=== PATIENT | male | born 1970 | race American Indian/Alaskan Native ===

== ENCOUNTER 2019-12-21 06:56 | Emergency (ER) | payer MEDICARE ==
[2019-12-21 07:56] LABS: Basophils % (Auto) 0.5 % (0.0-1.8); Eosinophils % (Auto) 0.5 % (0.0-4.3); Hematocrit 42.3 % (35.5-45.6); Hemoglobin 14.2 gm/dl (11.8-15.2); Lymphocytes # (Auto) 2.3 K/mm3 (1.2-5.4); Lymphocytes % (Auto) 29.4 % (13.4-35.0); Mean Corpuscular HGB Conc 34 % (32-34); Mean Corpuscular Volume 81 fl (84-94); Monocytes # (Auto) 0.5 K/mm3 (0.0-0.8); Platelet Count 268 K/mm3 (140-440); Red Blood Count 5.22 M/mm3 (3.65-5.03); Red Cell Distribution Width 13.5 % (13.2-15.2)
[2019-12-21 08:23] LABS: Alanine Aminotransferase 11 units/L (7-56); Albumin 4.6 g/dL (3.9-5); BUN/Creatinine Ratio 24; Blood Urea Nitrogen 24 mg/dL (9-20); Calcium 9.8 mg/dL (8.4-10.2); Hemolysis Index 14
--- NOTE | 2019-12-21 08:56 | Emergency Department Report ---
ED Abdominal Pain HPI - General Chief Complaint: Abdominal Pain Stated Complaint: SEVERE ABD PAIN Time Seen by Provider: 12/21/19 08:29 Source: patient Mode of arrival: Ambulatory Limitations: No Limitations - History of Present Illness Initial Comments: 48-year-old -[place] male patient presents with complaints of epigastric pain x 5 days. Patient reports history of PUD 3 years ago and states he is currently taking Protonix. He rates his current pain as a 7/10 in severity and states it worsens with eating and lying down. He denies any fe truong/chills/sweats, chest pain, shortness of breath, hematemesis/coffee-ground emesis, melena/hematochezia, constipation, or history of abdominal surgeries. He also admits to history of diabetes, hypertension, and high alcohol intake. Patient states he has not been able to keep any foods down since the onset of his symptoms and states he has to spit often. He denies difficulty swallowing or choking. - Related Data Previous Rx's Medication Instructions Recorded Last Taken Type Acetaminophen/Codeine [Tylenol 1 tab PO Q6H PRN #6 tab 12/21/19 Unknown Rx /Codeine # 3 tab] Dexlansoprazole [Dexilant] 60 mg PO QAM 15 Days #15 bp 12/21/19 Unknown Rx Mag Hydrox/Aluminum Hyd/Simeth 20 ml PO Q4H PRN 10 Days #1 12/21/19 Unknown Rx [Maalox Advanced Suspension] oral.susp Sucralfate [Carafate] 1 gm PO Q6HR 10 Days #100 tablet 12/21/19 Unknown Rx Allergies Allergy/AdvReac Type Severity Reaction Status Date / Time No Known Allergies Allergy Unverified 12/21/19 07:13 ED Review of Systems ROS: Stated complaint: SEVERE ABD PAIN Other details as noted in HPI Constitutional: denies: chills, fever Eyes: denies: vision change ENT: denies: throat pain Respiratory: denies: cough, shortness of breath Cardiovascular: denies: chest pain Gastrointestinal: abdominal pain, nausea, vomiting. denies: diarrhea, constipation, hematemesis, melena, hematochezia Genitourinary: denies: urgency, dysuria, frequency, hematuria Musculoskeletal: denies: back pain Skin: denies: rash, lesions, change in color Neurological: denies: headache Hematological/Lymphatic: denies: easy bleeding, easy bruising ED Past Medical Hx - Past Medical History Previous Medical History?: Yes Hx Hypertension: Yes Hx Diabetes: Yes Additional medical history: stomach ulcer - Surgical History Past Surgical History?: No - Social History Smoking Status: Current Every Day Smoker Substance Use Type: Alcohol - Medications Home Medications: Home Medications Medication Instructions Recorded Confirmed Last Taken Type Acetaminophen/Codeine [Tylenol 1 tab PO Q6H PRN #6 tab 12/21/19 Unknown Rx /Codeine # 3 tab] Dexlansoprazole [Dexilant] 60 mg PO QAM 15 Days #15 beto.bp 12/21/19 Unknown Rx Mag Hydrox/Aluminum Hyd/Simeth 20 ml PO Q4H PRN 10 Days #1 12/21/19 Unknown Rx [Maalox Advanced Suspension] oral.susp Sucralfate [Carafate] 1 gm PO Q6HR 10 Days #100 tablet 12/21/19 Unknown Rx ED Physical Exam - General Limitations: No Limitations General appearance: alert, in no apparent distress - Head Head exam: Present: atraumatic, normocephalic - Eye Eye exam: Present: normal appearance. Absent: scleral icterus - ENT ENT exam: Present: mucous membranes moist - Neck Neck exam: Present: normal inspection - Respiratory Respiratory exam: Present: normal lung sounds bilaterally. Absent: respiratory distress - Cardiovascular Cardiovascular Exam: Present: regular rate, normal rhythm. Absent: systolic murmur, diastolic murmur, rubs, gallop - GI/Abdominal GI/Abdominal exam: Present: soft, tenderness (Epigastric tenderness noted to palpation with mild guarding), normal bowel sounds. Absent: distended, rebound, rigid - Extremities Exam Extremities exam: Present: normal inspection - Back Exam Back exam: Present: normal inspection - Neurological Exam Neurological exam: Present: alert, oriented X3, normal gait - Psychiatric Psychiatric exam: Present: normal affect, normal mood - Skin Skin exam: Present: warm, dry, intact, normal color. Absent: rash ED Course Vital Signs 12/21/19 12/21/19 12/21/19 07:13 08:46 13:17 Temperature 98.4 F Pulse Rate 87 68 Respiratory 16 18 16 Rate Blood Pressure 132/91 Blood Pressure 148/78 [Right] O2 Sat by Pulse 100 98 99 Oximetry ED Medical Decision Making - Lab Data Result diagrams: 12/21/19 07:48 12/21/19 07:48 Lab Results 12/21/19 12/21/19 12/21/19 Range/Units 07:35 07:48 07:48 WBC 7.8 (4.5-11.0) K/mm3 RBC 5.22 H (3.65-5.03) M/mm3 Hgb 14.2 (11.8-15.2) gm/dl Hct 42.3 (35.5-45.6) % MCV 81 L (84-94) fl MCH 27 L (28-32) pg MCHC 34 (32-34) % RDW 13.5 (13.2-15.2) % Plt Count 268 (140-440) K/mm3 Lymph % (Auto) 29.4 (13.4-35.0) % Norton % (Auto) 7.0 (0.0-7.3) % Eos % (Auto) 0.5 (0.0-4.3) % Baso % (Auto) 0.5 (0.0-1.8) % Lymph # 2.3 (1.2-5.4) K/mm3 Norton # 0.5 (0.0-0.8) K/mm3 Eos # 0.0 (0.0-0.4) K/mm3 Baso # 0.0 (0.0-0.1) K/mm3 Seg Neutrophils % 62.6 (40.0-70.0) % Seg Neutrophils # 4.9 (1.8-7.7) K/mm3 Sodium 135 L (137-145) mmol/L Potassium 3.4 L (3.6-5.0) mmol/L Chloride 94.4 L (98-107) mmol/L Carbon Dioxide 27 (22-30) mmol/L Anion Gap 17 mmol/L BUN 24 H (9-20) mg/dL Creatinine 1.0 (0.8-1.3) mg/dL Estimated GFR > 60 ml/min BUN/Creatinine Ratio 24 % Glucose 195 H (75-100) mg/dL POC Glucose 190 H (70-105) Calcium 9.8 (8.4-10.2) mg/dL Total Bilirubin 0.70 (0.1-1.2) mg/dL AST 11 (5-40) units/L ALT 11 (7-56) units/L Alkaline Phosphatase 73 (35-129) units/L Troponin T (0.00-0.029) ng/mL Total Protein 7.4 (6.3-8.2) g/dL Albumin 4.6 (3.9-5) g/dL Albumin/Globulin Ratio 1.6 % Lipase (13-60) units/L Urine Color (Yellow) Urine Turbidity (Clear) Urine pH (5.0-7.0) Ur Specific Bristow (1.003-1.030) Urine Protein (Negative) mg/dL Urine Glucose (UA) (Negative) mg/dL Urine Ketones (Negative) mg/dL Urine Blood (Negative) Urine Nitrite (Negative) Urine Bilirubin (Negative) Urine Urobilinogen (<2.0) mg/dL Ur Leukocyte Esterase (Negative) Urine WBC (Auto) (0.0-6.0) /HPF Urine RBC (Auto) (0.0-6.0) /HPF U Epithel Cells (Auto) (0-13.0) /HPF Urine Mucus /HPF 12/21/19 12/21/19 12/21/19 Range/Units 07:48 08:45 09:40 WBC (4.5-11.0) K/mm3 RBC (3.65-5.03) M/mm3 Hgb (11.8-15.2) gm/dl Hct (35.5-45.6) % MCV (84-94) fl MCH (28-32) pg MCHC (32-34) % RDW (13.2-15.2) % Plt Count (140-440) K/mm3 Lymph % (Auto) (13.4-35.0) % Norton % (Auto) (0.0-7.3) % Eos % (Auto) (0.0-4.3) % Baso % (Auto) (0.0-1.8) % Lymph # (1.2-5.4) K/mm3 Norton # (0.0-0.8) K/mm3 Eos # (0.0-0.4) K/mm3 Baso # (0.0-0.1) K/mm3 Seg Neutrophils % (40.0-70.0) % Seg Neutrophils # (1.8-7.7) K/mm3 Sodium (137-145) mmol/L Potassium (3.6-5.0) mmol/L Chloride (98-107) mmol/L Carbon Dioxide (22-30) mmol/L Anion Gap mmol/L BUN (9-20) mg/dL Creatinine (0.8-1.3) mg/dL Estimated GFR ml/min BUN/Creatinine Ratio % Glucose (75-100) mg/dL POC Glucose (70-105) Calcium (8.4-10.2) mg/dL Total Bilirubin (0.1-1.2) mg/dL AST (5-40) units/L ALT (7-56) units/L Alkaline Phosphatase (35-129) units/L Troponin T < 0.010 (0.00-0.029) ng/mL Total Protein (6.3-8.2) g/dL Albumin (3.9-5) g/dL Albumin/Globulin Ratio % Lipase 12 L (13-60) units/L Urine Color Luz (Yellow) Urine Turbidity Clear (Clear) Urine pH 6.0 (5.0-7.0) Ur Specific Bristow 1.025 (1.003-1.030) Urine Protein 30 mg/dl (Negative) mg/dL Urine Glucose (UA) 150 (Negative) mg/dL Urine Ketones Tr (Negative) mg/dL Urine Blood Neg (Negative) Urine Nitrite Neg (Negative) Urine Bilirubin Neg (Negative) Urine Urobilinogen < 2.0 (<2.0) mg/dL Ur Leukocyte Esterase Neg (Negative) Urine WBC (Auto) 15.0 H (0.0-6.0) /HPF Urine RBC (Auto) 3.0 (0.0-6.0) /HPF U Epithel Cells (Auto) < 1.0 (0-13.0) /HPF Urine Mucus 3+ /HPF - Radiology Data Radiology results: report reviewed CT abdomen pelvis w con INDICATION: epigastric pain. TECHNIQUE: All CT scans at this location are performed using CT dose reduction for ALARA by means of automated exposure control. COMPARISON: None available. FINDINGS: Lung bases are clear. Liver, gallbladder, spleen, pancreas, kidneys and adrenals are negative. Incidental benign-appearing left renal cyst. Abdominal aorta is normal in size. No adenopathy. Pelvis Normal appendix. No free fluid, inflammatory change, abnormal mass or adenopathy. No skeletal lesions. IMPRESSION: 1. No significant abnormality. - Medical Decision Making Patient here with complaints of epigastric pain. No significant abnormalities are noted on CBC, CMP, or lipase, however given patient's history of PUD his physical exam, CT abdomen was ordered which was negative for any acute findings. Patient was treated with a GI cocktail and Protonix IV and states his pain has significantly improved. Patient is tolerating fluids p.o. His vitals remain normal, he is well-appearing, and stable for discharge home. Recommend follow- up with gastroenterology for further evaluation. Patient instructed to di scontinue Protonix for now and start Dexilant and Carafate. Strict return precautions were discussed in great detail with patient who verbalized understanding. - Differential Diagnosis PUD, gastritis, H. pylori Critical care attestation.: If time is entered above; I have spent that time in minutes in the direct care of this critically ill patient, excluding procedure time. ED Disposition Clinical Impression: Gastritis Qualifiers: Gastritis type: other gastritis Chronicity: acute Gastritis bleeding: presence of bleeding unspecified Qualified Code(s): K29.00 - Acute gastritis without bleeding Disposition: DC-01 TO HOME OR SELFCARE Is pt being admited?: No Condition: Stable Instructions: Gastritis (ED), Diet for Ulcers and Gastritis (ED) Prescriptions: Sucralfate [Carafate] 1 gm PO Q6HR 10 Days #100 tablet Dexlansoprazole [Dexilant] 60 mg PO QAM 15 Days #15 cap. Mag Hydrox/Aluminum Hyd/Simeth [Maalox Advanced Suspension] 20 ml PO Q4H PRN 10 Days #1 oral.susp PRN Reason: heartburn Acetaminophen/Codeine [Tylenol /Codeine # 3 tab] 1 tab PO Q6H PRN #6 tab PRN Reason: Pain , Severe (7-10) Referrals: [facility] [Provider Group] - 12/22/19
[2019-12-21 08:57] LABS: Bilirubin,Urine NEG (Negative); Blood,Urine NEG (Negative); Color,Urine Amber (Yellow); Mucus,Urine 3+ /HPF; Urobilinogen,Urine < 2.0 mg/dL (<2.0)
[2019-12-21] MEDS ORDERED: PANTOPRAZOLE 40 MG INJ IV ONE (09:13)
[2019-12-21] MEDS ORDERED: SODIUM CHLORIDE 0.9% 1000 ML 1,000 ML IV ONE (09:15)
--- NOTE | 2019-12-21 10:09 | Cat Scan Report ---
CT abdomen pelvis w con INDICATION: epigastric pain. TECHNIQUE: All CT scans at this location are performed using CT dose reduction for ALARA by means of automated e xposure control. COMPARISON: None available. FINDINGS: Lung bases are clear. Liver, gallbladder, spleen, pancreas, kidneys and adrenals are negative. Incide ntal benign-appearing left renal cyst. Abdominal aorta is normal in size. No adenopathy. Pelvis Normal appendix. No free fluid, inflammatory change, abnormal mass or adenopathy. No skeletal lesions. IMPRESSION: 1. No significant abnormality. Signer Name: Harman Vega MD Signed: 12/21/2019 10:05 AM Workstation Name: [id number]
[2019-12-21] MEDS ORDERED: ALUM-MAG HYDROXIDE-SIMETHICONE 200-200-20MG/5ML ORAL LIQD 30 ML PO ONE (11:28)
[2019-12-21] MEDS ORDERED: LIDOCAINE VISCOUS 2% 15 ML ORAL LIQD PO ONE (11:28)
[2019-12-21] MEDS ORDERED: HYDROcodone/ACETAMINOPHEN 5-325 MG TAB PO ONE (13:06)
[2019-12-21 13:18] VITALS: BP 148/78
== END 2019-12-21 13:23 | disposition home or self-care (01) ==
LOC: ED 06:56
DX: K29.70 Gastritis, unspecified, without bleeding (principal); I10 Essential (primary) hypertension; E11.9 Type 2 diabetes mellitus without complications; F17.200 Nicotine dependence, unspecified, uncomplicated; Z79.899 Other long term (current) drug therapy
CPT/HCPCS: 36415; 74177; 80053; 81001; 82962; 83690; 84484; 85025; 87086; 96361; 96374; 99284; C9113; J7030; Q9967